=== PATIENT | female | born 1970 | race American Indian/Alaskan Native ===

== ENCOUNTER 2020-06-10 16:18 | Emergency (ER) | payer MEDICARE ==
--- NOTE | 2020-06-10 16:26 | Emergency Department Report ---
Blank Doc - Documentation Documentation: 49-year-old female that presents with abdominal pain with n/v. This initial assessment/diagnostic orders/clinical plan/treatment(s) is/are subject to change based on patient's health status, clinical progression and re- assessment by fellow clinical providers in the ED. Further treatment and workup at subsequent clinical providers discretion. Patient/guardians urged not to elope from the ED as their condition may be serious if not clinically assessed and managed. Initial orders include: 1- Patient sent to [facility] for further evaluation and treatment 2- labs 3- UA
[2020-06-10 17:26] LABS: Basophils # (Auto) 0.1 K/mm3 (0.0-0.1); Basophils % (Auto) 1.1 % (0.0-1.8); Eosinophils % (Auto) 0.4 % (0.0-4.3); Hemoglobin 13.5 gm/dl (10.1-14.3); Lymphocytes # (Auto) 1.7 K/mm3 (1.2-5.4); Lymphocytes % (Auto) 16.1 % (13.4-35.0); Mean Corpuscular HGB Conc 34 % (30-34); Mean Corpuscular Volume 93 fl (79-97); Monocytes # (Auto) 0.8 K/mm3 (0.0-0.8); Monocytes % (Auto) 7.7 % (0.0-7.3); Platelet Count 271 K/mm3 (140-440); Red Cell Distribution Width 13.8 % (13.2-15.2)
[2020-06-10 17:41] LABS: Alanine Aminotransferase 16 units/L (7-56); Albumin 4.6 g/dL (3.9-5); BUN/Creatinine Ratio 16; Blood Urea Nitrogen 14 mg/dL (7-17); Calcium 9.6 mg/dL (8.4-10.2); Hemolysis Index 3
[2020-06-10 17:52] LABS: Bacteria,Urine 1+ /HPF (Negative); Bilirubin,Urine NEG (Negative); Blood,Urine NEG (Negative); Color,Urine Yellow (Yellow); Mucus,Urine FEW /HPF; Urobilinogen,Urine < 2.0 mg/dL (<2.0)
--- NOTE | 2020-06-11 03:52 | Emergency Department Report ---
ED General Adult HPI - General Chief complaint: Abdominal Pain Stated complaint: NAUSEA/VOMITTING/CHEST PAIN PUI?: No Time Seen by Provider: 06/10/20 16:25 Source: patient, EMS Mode of arrival: Wheelchair Limitations: No Limitations - History of Present Illness Initial comments: Patient is a 49-year-old female that presents emergency room with complaints of chest pain, cough, abdominal pain, nausea, vomiting. Patient states that chest pain, abdominal pain and nausea vomiting started 36 hours ago. Patient states that her cough started 3 days ago. Patient states her cough is the same. Patient states that her chest pain is worsening. Patient states her abdominal pain is in her epigastric region. Patient states that her abdominal pain and chest pain are a 7 out of 10. Patient states her chest pain is in her bilateral chest. Patient states her chest pain is nonradiating. Patient states that her chest pain is better with rest and worse with cough and movement. Patient states her abdominal pain is better with rest and worse with vomiting and movement. Patient denies blood in her vomitus. Patient denies diarrhea. Patient denies loss of smell. Patient states she has not had a recent Covid test. Patient states she is not able to hold anything down. Patient denies recent travel. Patient denies recent international travel. Patient denies exposure to the novel coronavirus. Patient denies sick contacts. Patient denies fever and chills. Patient denies loss of smell. Patient denies diarrhea. Patient denies coming in contact with anybody with symptoms of the novel coronavirus. -: Sudden, days(s) Severity scale (0 -10): 7 Quality: stabbing Consistency: constant Associated Symptoms: chest pain, cough. denies: confusion, diaphoresis, fever/chills, headaches, loss of appetite, malaise, nausea/vomiting, rash, seizure, shortness of breath, syncope, weakness Treatments Prior to Arrival: other (Robitussin cough syrup) - Related Data Previous Rx's Medication Instructions Recorded Last Taken Type Azithromycin [Zithromax TAB] 500 mg PO QDAY 5 Days #5 tablet 06/11/20 Unknown Rx Dexamethasone [Taperdex] 1.5 mg PO DAILY 7 Days #1 tab.ds.pk 06/11/20 Unknown Rx Ondansetron [Zofran Odt] 4 mg PO Q4HR PRN #20 tab.rapdis 06/11/20 Unknown Rx Allergies Allergy/AdvReac Type Severity Reaction Status Date / Time acetaminophen [From Percocet] Allergy Itching Verified 06/10/20 16:26 codeine Allergy Headache Verified 06/10/20 16:26 [From Tylenol-Codeine #3] metoclopramide [From Reglan] Allergy Shortness Verified 06/10/20 16:26 of Breath oxycodone [From Percocet] Allergy Itching Verified 06/10/20 16:26 prochlorperazine Allergy Shortness Verified 06/10/20 16:26 [From Compazine] of Breath ED Review of Systems ROS: Stated complaint: NAUSEA/VOMITTING/CHEST PAIN Other details as noted in HPI Constitutional: denies: chills, fever Eyes: denies: eye pain, eye discharge, vision change ENT: denies: ear pain, throat pain Respiratory: see HPI, cough. denies: shortness of breath, wheezing Cardiovascular: as per HPI, chest pain. denies: palpitations Endocrine: no symptoms reported Gastrointestinal: as per HPI, abdominal pain, nausea, vomiting. 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 - Surgical History Past Surgical History?: No - Family History Family history: no significant - Social History Smoking Status: Never Smoker Substance Use Type: None - Medications Home Medications: Home Medications Medication Instructions Recorded Confirmed Last Taken Type Azithromycin [Zithromax TAB] 500 mg PO QDAY 5 Days #5 tablet 06/11/20 Unknown Rx Dexamethasone [Taperdex] 1.5 mg PO DAILY 7 Days #1 tab.ds.pk 06/11/20 Unknown Rx Ondansetron [Zofran Odt] 4 mg PO Q4HR PRN #20 tab.rapdis 06/11/20 Unknown Rx ED Physical Exam - General Limitations: No Limitations General appearance: alert, in no apparent distress - Head Head exam: Present: atraumatic, normocephalic - Eye Eye exam: Present: normal appearance - ENT ENT exam: Present: mucous membranes moist - Neck Neck exam: Present: normal inspection - Respiratory Respiratory exam: Present: normal lung sounds bilaterally, chest wall tenderness (Reproduces symptoms.). Absent: respiratory distress - Cardiovascular Cardiovascular Exam: Present: regular rate, normal rhythm. Absent: systolic murmur, diastolic murmur, rubs, gallop - GI/Abdominal GI/Abdominal exam: Present: soft, tenderness (Epigastric tenderness), normal bowel sounds - Extremities Exam Extremities exam: Present: normal inspection - Back Exam Back exam: Present: normal inspection - Neurological Exam Neurological exam: Present: alert, oriented X3 - Psychiatric Psychiatric exam: Present: normal affect, normal mood - Skin Skin exam: Present: warm, dry, intact, normal color. Absent: rash ED Course Vital Signs 06/10/20 16:27 Temperature 98.1 F Pulse Rate 79 Respiratory 20 Rate Blood Pressure 141/83 O2 Sat by Pulse 97 Oximetry - Reevaluation(s) Reevaluation #1: I discussed all results and clinical findings with patient. I discussed plan of care with patient. Patient agrees with plan of care. Patient is stable for discharge. Patient will be discharged home. Patient given discharge instructions. Patient voiced understanding of discharge instructions. 06/11/20 05:15 ED Medical Decision Making - Lab Data Result diagrams: 06/10/20 16:54 06/10/20 16:54 - Radiology Data Radiology results: report reviewed, image reviewed interpreted by me: Chest x-ray: No pneumonia, no pneumothorax, no foreign body, no osseous findings, no acute findings CT scan report reviewed and shows no acute findings. - Medical Decision Making Patient is a 49-year-old female that presents emergency room with complaints of chest pain, abdominal pain, nausea, vomiting and coughing. Patient's chest pain is secondary to coughing and costochondritis. Patient had a chest x-ray which was negative for acute findings. Chest x-ray not show any pneumonia. Patient had labs done which were essentially unremarkable except for an elevated lipase and the patient had a CT scan done. Patient CT scan shows no acute findings. Patient clinical findings are consistent with costochondritis, gastroenteritis, UTI and URI. Patient's cough is due to URI. Patient will require Covid testing as an outpatient. Patient will be given Zithromax for her upper respiratory infection and UTI. Patient will be given TaperDex for the upper respiratory infection. Patient given Zofran for the nausea vomiting and gastroenteritis. Patient is stable for discharge. Patient be discharged home. - Differential Diagnosis Pancreatitis, nausea, vomiting, abdominal pain, Covid, URI, UTI Critical care attestation.: If time is entered above; I have spent that time in minutes in the direct care of this critically ill patient, excluding procedure time. ED Disposition Clinical Impression: Cough, Chest wall pain, Costochondritis, acute, Gastroenteritis Abdominal pain Qualifiers: Abdominal location: epigastric Qualified Code(s): R10.13 - Epigastric pain Nausea & vomiting Qualifiers: Vomiting type: unspecified Vomiting Intractability: non-intractable Qualified Code(s): R11.2 - Nausea with vomiting, unspecified UTI (urinary tract infection) Qualifiers: Urinary tract infection type: acute cystitis Hematuria presence: with hematuria Qualified Code(s): N30.01 - Acute cystitis with hematuria URI (upper respiratory infection) Qualifiers: URI type: unspecified URI Qualified Code(s): J06.9 - Acute upper respiratory infection, unspecified Disposition: DC- TO HOME OR SELFCARE Is pt being admited?: No Does the pt Need Aspirin: No Condition: Stable Instructions: Costochondritis, [id number], Cough, Adult, [id number], Antibiotic Medicine, Adult, [id number], Viral Gastroenteritis, Adult, Easy-to- Read, Viral Respiratory Infection, [id number], Food Choices to Help Relieve Diarrhea, Adult, Urinary Tract Infection, Adult, COVID-19: How to Protect Yourself and Others - CDC, COVID-19, Prevent the Spread of COVID-19 if You Are Sick - CDC, [place] Diet, Chest Pain (ED), Abdominal Pain (ED) Additional Instructions: Patient to follow-up with primary care in 2 to 3 days. Patient to follow-up with local health department and a COVID-19 testing facility with in 2 days. Patient to rest. Patient to increase water. Patient to eat a brat diet. Patient to self quarantine for 14 days.. Patient to take Tylenol as needed for pain. Patient to take meds as directed. Patient to return to the ER if condition worsens, changes or new symptoms arise. Prescriptions: Dexamethasone [Taperdex] 1.5 mg PO DAILY 7 Days #1 tab.ds.pk Azithromycin [Zithromax TAB] 500 mg PO QDAY 5 Days #5 tablet Ondansetron [Zofran Odt] 4 mg PO Q4HR PRN #20 tab.rapdis PRN Reason: Nausea And Vomiting Referrals: ANTHONY OLGUIN MD [Primary Care Provider] - 2-3 Days Time of Disposition: 05:21
--- NOTE | 2020-06-11 04:28 | XRay Report ---
CHEST 1 VIEW, 06/11/2020 3:47 AM CLINICAL INFORMATION/INDICATION: Cough COMPARISON: None. FINDINGS: SUPPORT DEVICES: Left cardiac pacing device. HEART: The cardiac silhouette is mildly enlarged. LUNGS/PLEURA: No focal airspace consolidation or significant pleural effusion is visualized. ADDITIONAL FINDINGS: No additional acute findings. IMPRESSION: 1. Mild enlargement of the cardiac silhouette. Signer Name: Hayley Bojorquez MD Signed: 06/11/2020 4:23 AM Workstation Name: [id number]
--- NOTE | 2020-06-11 04:48 | Cat Scan Report ---
CT ABDOMEN AND PELVIS WITH IV CONTRAST INDICATION: Generalized abdominal pain, nausea and vomiting TECHNIQUE: Following the administration of intravenous contrast, multiple axial CT images of the abdo men and pelvis were acquired. Sagittal and coronal reformats were obtained. All CT performed at this facility utilize dose reduction techniques including automated exposure control, iterative reconstru ction and weight based dosing when appropriate to reduce patient radiation dose to as low as reasonab ly achievable. COMPARISON: None FINDINGS: Limited imaging of the bilateral lung bases demonstrates no acute abnormality. ABDOMEN: Subcentimeter cyst is noted within the hepatic dome. The gallbladder has been removed. The spleen, pa ncreas, bilateral adrenal glands and bilateral kidneys show no evidence of acute abnormality. A few s ubcentimeter bilateral renal cysts are noted. There is a small splenule. There is no evidence of jazmine l obstruction or free fluid. The appendix is visualized and appears normal. PELVIS: An IUD is present within the uterus. There is a right adnexal cyst measuring 2.9 x 2.7 cm. No free pe lvic fluid is visualized. BONES AND SOFT TISSUES: Bony structures show no evidence of acute abnormality. Soft tissue structures appear grossly normal. IMPRESSION: 1. No CT evidence of acute inflammatory or obstructive process within the abdomen or pelvis. 2. Right adnexal cyst. Signer Name: Hayley Bojorquez MD Signed: 06/11/2020 4:43 AM Workstation Name: [id number]
[2020-06-11 07:48] VITALS: BP 142/80
== END 2020-06-11 10:07 | disposition home or self-care (01) ==
LOC: ED 16:18
DX: K52.9 Noninfective gastroenteritis and colitis, unspecified (principal); N39.0 Urinary tract infection, site not specified; J06.9 Acute upper respiratory infection, unspecified; M94.0 Chondrocostal junction syndrome [Tietze]; R11.2 Nausea with vomiting, unspecified; R10.9 Unspecified abdominal pain; R07.89 Other chest pain; R05 Cough; E11.9 Type 2 diabetes mellitus without complications; G43.909 Migraine, unspecified, not intractable, without status migrainosus; J45.909 Unspecified asthma, uncomplicated; Z79.2 Long term (current) use of antibiotics; Z79.899 Other long term (current) drug therapy; Z88.8 Allergy status to other drugs, medicaments and biological substances
CPT/HCPCS: 36415; 71045; 74177; 80053; 81001; 83690; 85025; 87086; 99285; Q9967